=== PATIENT | female | born 1975 | race Two or more races ===

== ENCOUNTER 2017-06-09 11:03 | Emergency (ER) | payer OTHER ==
[2017-06-09] MEDS: BUPIVACAINE HCL 0.5% 10 ML VIAL SC (12:30)
[2017-06-09] MEDS: LIDOCAINE 2% MDV 20 ML VIAL SC (12:30)
== END 2017-06-09 13:04 | disposition home or self-care (01) ==
LOC: M ED 11:03
DX: K08.89 Other specified disorders of teeth and supporting structures (principal); I10 Essential (primary) hypertension; Z79.899 Other long term (current) drug therapy
CPT/HCPCS: 64400

== ENCOUNTER → 2018-01-28 | Outpatient (REF) | payer OTHER ==
[2018-01-28 21:22] LABS: INFLUENZA A AMPLIFICATION NEGATIVE (NEGATIVE); INFLUENZA B AMPLIFICATION NEGATIVE (NEGATIVE)
== END ==
LOC: M LAB REF 18:44
DX: J11.1 Influenza due to unidentified influenza virus with other respiratory manifestations (principal)
CPT/HCPCS: 87502

== ENCOUNTER → 2020-07-05 | Outpatient (CLI) | payer OTHER, SELFPAY ==
[~2020-07-05] MED LIST: HYDR12.55 PO; VICO5TAB17 PO
--- NOTE | 2020-07-06 04:26 | REP ---
INDICATION: RADICULOPATHY. COMPARISON: None. TECHNIQUE: AP, Lateral, open mouth views of the cervical spine. FINDINGS: Lateral view demonstrates straightening of normal lordosis which is nonspecific. There is early moderate degenerative change and C5-6 and C6-7 including endplate sclerosis with mild disc space narrowing and anterior spurring. IMPRESSION: Mild focal degenerative changes. <Electronically signed by Dwain Muñoz > 07/06/20 0422
== END ==
LOC: M WUC 15:02
PROVIDERS: ATTEND Physician Assistant
DX: M54.12 Radiculopathy, cervical region (principal)